=== PATIENT | female | born 1935 | race Caucasian/White ===

== ENCOUNTER 2020-12-22 21:30 | Emergency (ER) | payer OTHER ==
[~2020-12-22] VITALS: Ht 160 cm; Wt 54.4 kg
[2020-12-22 21:33] VITALS: BP 166/86
[2020-12-22 21:46] LABS: BILIRUBIN Negative (Negative); BLOOD 1+ (Negative); CLARITY Clear (Clear); COLOR Yellow (Yellow); GLUCOSE Negative (Negative); KETONE Negative (Negative); LEUKO ESTERASE 2+ (Negative); NITRITE Negative (Negative); PH 7.5 (4.5-8.0)
[2020-12-22 21:57] LABS: BACTERIA 3+; EPITHELIAL CELLS 0-2; WBC 31-40 wbc/hpf (0-5)
[2020-12-22] MEDS ORDERED: CIPRO500 MG PO (22:11)
== END 2020-12-22 22:42 | disposition home or self-care (01) ==
LOC: ED 21:30
PROVIDERS: Internal Medicine
DX: N39.0 Urinary tract infection, site not specified (principal); Z90.711 Acquired absence of uterus with remaining cervical stump

== ENCOUNTER → 2023-11-09 | Outpatient (CLI) | payer MEDICARE, OTHER ==
[~2023-11-09] MED LIST: CIPRO500 MG PO; HEPARIN SODIUM 500 UNIT/5 ML SYR IV ONE; HEPARIN SODIUM 500 UNIT/5 ML SYR IV SCH; SODIUM CHLORIDE 0.9% 10 ML SYR IV PRN
== END | disposition home or self-care (01) ==
LOC: MEDIPORT 11:30
PROVIDERS: ATTEND Family Medicine
DX: Z45.2 Encounter for adjustment and management of vascular access device (principal)

== ENCOUNTER 2023-11-19 10:29 | Emergency (ER) | payer MEDICARE, OTHER ==
[~2023-11-19] VITALS: Ht 162.5 cm; Wt 49.0 kg
[~2023-11-19 10:29] MED LIST changes: -HEPARIN SODIUM 500 UNIT/5 ML SYR IV ONE; -HEPARIN SODIUM 500 UNIT/5 ML SYR IV SCH; -SODIUM CHLORIDE 0.9% 10 ML SYR IV PRN
[2023-11-19 10:40] VITALS: BP 141/64
[2023-11-19] MEDS ORDERED: METOCLOPRAMIDE10 M1 PO (10:46)
[2023-11-19] MEDS ORDERED: METOPROLOL SUCC25 M2 PO (10:46)
[2023-11-19] MEDS ORDERED: PANTOPRAZOLE SO40 MG PO (10:47)
[2023-11-19] MEDS ORDERED: TROSPIUM CHLORI60 M1 PO (10:48)
[2023-11-19] MEDS ORDERED: Synthroid,Levo88 MCG PO (10:48)
[2023-11-19] MEDS ORDERED: LACTULOSE 20 GM/30 ML UDC PO ONE (10:50)
[2023-11-19] MEDS ORDERED: SODIUM POLYSTYRENE SULFONATE 15 GM/60 ML BOT PO ONE (10:50)
[2023-11-19] MEDS ORDERED: LACTULOSE20 GM/30 M PO (14:41)
== END 2023-11-19 14:51 | disposition home or self-care (01) ==
LOC: ED 10:29
DX: K59.00 Constipation, unspecified (principal); I10 Essential (primary) hypertension; E78.5 Hyperlipidemia, unspecified; E03.9 Hypothyroidism, unspecified; Z98.890 Other specified postprocedural states; Z90.710 Acquired absence of both cervix and uterus

== ENCOUNTER → 2023-12-12 | Outpatient (CLI) | payer MEDICARE, OTHER ==
[~2023-12-12] MED LIST changes: +HEPARIN SODIUM 500 UNIT/5 ML SYR IV ONE; +HEPARIN SODIUM 500 UNIT/5 ML SYR IV SCH; +LACTULOSE20 GM/30 M PO; +METOCLOPRAMIDE10 M1 PO; +METOPROLOL SUCC25 M2 PO; +PANTOPRAZOLE SO40 MG PO; +SODIUM CHLORIDE 0.9% 10 ML SYR IV PRN; +Synthroid,Levo88 MCG PO; +TROSPIUM CHLORI60 M1 PO
== END | disposition home or self-care (01) ==
LOC: MEDIPORT 12:35
PROVIDERS: ATTEND Family Medicine
DX: Z45.2 Encounter for adjustment and management of vascular access device (principal)

== ENCOUNTER → 2024-02-06 | Outpatient (CLI) | payer MEDICARE, OTHER ==
[~2024-02-06] MED LIST changes: +ASPIRIN81 M1 PO; +CALCIUM CITRAT1 EA21 PO; +ENULOSE10 GM/151 PO; -HEPARIN SODIUM 500 UNIT/5 ML SYR IV SCH; +MIRALAX POWDER17 G1 PO; +MULTI-VITAMIN1 EACH PO; -SODIUM CHLORIDE 0.9% 10 ML SYR IV PRN; +VITAMIN D350 MC2 PO; +WIXELA 100-501 EACH INH
== END ==
LOC: MEDIPORT 01-12 13:00
PROVIDERS: ATTEND Family Medicine
DX: Z45.2 Encounter for adjustment and management of vascular access device (principal)

== ENCOUNTER → 2024-03-13 | Outpatient (CLI) | payer MEDICARE, OTHER ==
[~2024-03-13] MED LIST changes: +HEPARIN SODIUM 500 UNIT/5 ML SYR IV SCH; +SODIUM CHLORIDE 0.9% 10 ML SYR IV PRN
== END | disposition home or self-care (01) ==
LOC: MEDIPORT 03-12 12:00
PROVIDERS: ATTEND Family Medicine
DX: Z45.2 Encounter for adjustment and management of vascular access device (principal); I25.10 Atherosclerotic heart disease of native coronary artery without angina pectoris; J45.909 Unspecified asthma, uncomplicated; K21.9 Gastro-esophageal reflux disease without esophagitis; I10 Essential (primary) hypertension; M15.9 Polyosteoarthritis, unspecified; E03.9 Hypothyroidism, unspecified

== ENCOUNTER → 2024-04-16 | Outpatient (CLI) | payer MEDICARE, OTHER | END | disposition home or self-care (01) | LOC: MEDIPORT 00:41 | PROVIDERS: ATTEND Family Medicine | DX: Z45.2 Encounter for adjustment and management of vascular access device (principal); I25.10 Atherosclerotic heart disease of native coronary artery without angina pectoris; K21.9 Gastro-esophageal reflux disease without esophagitis; E03.9 Hypothyroidism, unspecified; I10 Essential (primary) hypertension; J45.909 Unspecified asthma, uncomplicated; M15.0 Primary generalized (osteo)arthritis; Z95.828 Presence of other vascular implants and grafts ==

== ENCOUNTER → 2024-06-18 | Outpatient (CLI) | payer MEDICARE, OTHER | END | disposition home or self-care (01) | LOC: MEDIPORT 11:48 | PROVIDERS: ATTEND Family Medicine | DX: Z45.2 Encounter for adjustment and management of vascular access device (principal); Z95.828 Presence of other vascular implants and grafts ==

== ENCOUNTER → 2024-07-23 | Outpatient (CLI) | payer MEDICARE, OTHER | END | disposition home or self-care (01) | LOC: MEDIPORT 00:58 | PROVIDERS: ATTEND Family Medicine | DX: Z45.2 Encounter for adjustment and management of vascular access device (principal); Z95.828 Presence of other vascular implants and grafts ==

== ENCOUNTER → 2024-08-28 | Outpatient (CLI) | payer MEDICARE, OTHER ==
[~2024-08-28] MED LIST changes: +ACETAMINOPHEN1 EACH PO; +BISACODYL10 MG R; +MAPAP EXTRA ST500 MG PO; +MILK OF MA400 MG/51 PO; +MUCUS RELIEF600 MG PO; +SENNA8.6 MG PO
== END | disposition home or self-care (01) ==
LOC: MEDIPORT 08-27 11:00
PROVIDERS: ATTEND Family Medicine
DX: Z45.2 Encounter for adjustment and management of vascular access device (principal)

== ENCOUNTER → 2024-10-29 | Outpatient (CLI) | payer MEDICARE, OTHER ==
[~2024-10-29] MED LIST changes: +AUGMENTIN 500500 M1 PO
== END | disposition home or self-care (01) ==
LOC: MEDIPORT 10-01 11:00
PROVIDERS: ATTEND Family Medicine
DX: Z45.2 Encounter for adjustment and management of vascular access device (principal); Z95.828 Presence of other vascular implants and grafts

== ENCOUNTER → 2024-12-17 | Outpatient (CLI) | payer MEDICARE, OTHER ==
[~2024-12-17] MED LIST changes: -HEPARIN SODIUM 500 UNIT/5 ML SYR IV ONE
== END | disposition home or self-care (01) ==
LOC: MEDIPORT 12-04 11:00
PROVIDERS: ATTEND Family Medicine
DX: Z45.2 Encounter for adjustment and management of vascular access device (principal)

== ENCOUNTER → 2025-01-21 | Outpatient (CLI) | payer MEDICARE, OTHER ==
[~2025-01-21] MED LIST changes: +HEPARIN SODIUM 500 UNIT/5 ML SYR IV ONE
== END | disposition home or self-care (01) ==
LOC: MEDIPORT 11:00
PROVIDERS: ATTEND Family Medicine
DX: Z45.2 Encounter for adjustment and management of vascular access device (principal); Z95.828 Presence of other vascular implants and grafts

== ENCOUNTER 2025-02-10 08:30 | Emergency (ER) | payer OTHER ==
[~2025-02-10 08:30] MED LIST changes: -HEPARIN SODIUM 500 UNIT/5 ML SYR IV ONE; -HEPARIN SODIUM 500 UNIT/5 ML SYR IV SCH; -SODIUM CHLORIDE 0.9% 10 ML SYR IV PRN
[2025-02-10 08:35] VITALS: BP 157/98
[2025-02-10] MEDS ORDERED: SODIUM CHLORIDE 0.9% 500 ML IV ONE ×2 (08:55→09:21)
[2025-02-10 09:15] LABS: BASO # 0.1 10*3/uL (0.0-0.1); BASO % 0.6 % (0.0-1.0); EOS # 0.1 10*3/uL (0.0-0.4); EOS % 0.7 % (1.0-4.0); MEAN CELL VOLUME 92.4 fl (81.0-99.0); MEAN CORPUSCULAR HGB 29.7 pg (27.0-31.0); MEAN PLATELET VOLUME 9.5 fl (9.6-12.3); MONO # 0.7 10*3/uL (0.1-1.0); MONO % 7.7 % (3.0-9.0); NEUT # 6.7 10*3/uL (2.3-7.9); NEUT % 77.8 % (47.0-73.0); NUCLEATED RED BLOOD CELL 0.0 % (0.0-0.0); NUCLEATED RED BLOOD CELL 0.0 10*3/uL (0.0-0.0); PLATELET COUNT AUTOMATED 323 10*3/uL (130-400); RED CELL DISTRI WIDTH 13.0 % (0-14.5)
[2025-02-10 09:21] LABS: BILIRUBIN Negative (Negative); BLOOD Negative (Negative); CLARITY Clear (Clear); COLOR Yellow (Yellow); KETONE Negative (Negative); LEUKO ESTERASE Negative (Negative); NITRITE Negative (Negative); SPECIFIC GRAVITY <= 1.005 (1.001-1.030); UROBILINOGEN 0.2 E.U./dl (0.0-1.0)
[2025-02-10 09:25] LABS: PH 8.5 (4.5-8.0)
[2025-02-10 09:31] LABS: BACTERIA TRACE
[2025-02-10 09:33] LABS: BUN 7.0 mg/dl (9-23); SGPT/ALT 30.0 U/L (5-49)
[2025-02-10] MEDS ORDERED: DERMABOND 1 EA APPL T ONE (11:20)
[2025-02-10] MEDS ORDERED: HEPARIN SODIUM 500 UNIT/5 ML SYR IV ONE (11:54)
== END 2025-02-10 11:44 | disposition home or self-care (01) ==
LOC: ED 08:30
PROVIDERS: Emergency Medicine
DX: S00.03XA Contusion of scalp, initial encounter (principal); S70.01XA Contusion of right hip, initial encounter; S40.011A Contusion of right shoulder, initial encounter; E86.0 Dehydration; F03.90 Unspecified dementia, unspecified severity, without behavioral disturbance, psychotic disturbance, mood disturbance, and anxiety; Z79.899 Other long term (current) drug therapy; Z79.82 Long term (current) use of aspirin; Z98.84 Bariatric surgery status; Z96.651 Presence of right artificial knee joint; W18.39XA Other fall on same level, initial encounter; Y93.89 Activity, other specified; Y92.128 Other place in nursing home as the place of occurrence of the external cause; Y99.8 Other external cause status

== ENCOUNTER 2025-02-24 20:48 | Inpatient (IN) | payer OTHER ==
[~2025-02-24] VITALS: Ht 162.6 cm; Wt 50.5 kg
[~2025-02-24 20:48] MED LIST changes: +ACYCLOVIR800 MG PO; +LEVOTHYROXINE100 MC1 PO; +METOPROLOL SUCC50 M1 PO
[2025-02-24] MEDS ORDERED: LORazepam 0.5 MG TAB PO PRN (22:45)
[2025-02-24] MEDS ORDERED: ACETAMINOPHEN 650 MG SUPP R PRN (22:50)
[2025-02-25] MEDS ORDERED: BISACODYL 10 MG SUPP R PRN
[2025-02-25] MEDS ORDERED: Midazolam Hydrochloride 2 MG/2 ML VIAL IV PRN (00:35)
[2025-02-25] MEDS ORDERED: SODIUM CHLORIDE 0.9% 500 ML IV ONE (07:11)
[2025-02-25 08:00] VITALS: BP 38/27
== END 2025-02-25 16:58 | DRG 871 ==
LOC: 5E 20:48
PROVIDERS: ADMIT Internal Medicine; ATTEND Internal Medicine
DX: A41.9 Sepsis, unspecified organism (principal); G93.41 Metabolic encephalopathy; I21.A1 Myocardial infarction type 2; J69.0 Pneumonitis due to inhalation of food and vomit; N17.0 Acute kidney failure with tubular necrosis; J96.00 Acute respiratory failure, unspecified whether with hypoxia or hypercapnia; K92.2 Gastrointestinal hemorrhage, unspecified; E44.0 Moderate protein-calorie malnutrition; E87.20 Acidosis, unspecified; J91.8 Pleural effusion in other conditions classified elsewhere; Z68.1 Body mass index [BMI] 19.9 or less, adult; Z66 Do not resuscitate; Z51.5 Encounter for palliative care; R65.20 Severe sepsis without septic shock; R73.9 Hyperglycemia, unspecified; I25.10 Atherosclerotic heart disease of native coronary artery without angina pectoris; J45.909 Unspecified asthma, uncomplicated; I10 Essential (primary) hypertension; K21.9 Gastro-esophageal reflux disease without esophagitis; E03.9 Hypothyroidism, unspecified